=== PATIENT | female | born 1940 | race American Indian/Alaskan Native ===

== ENCOUNTER 2016-08-20 12:49 | Emergency (ER) | payer MEDICARE, OTHER ==
[2016-08-20 14:39] VITALS: BP 124/71
--- NOTE | 2016-08-20 15:06 | EDM.PDOC ---
ED HPI GENERAL MEDICAL PROBLEM - General Chief Complaint: ENT Problem Stated Complaint: EYES ARE BLODDY Time Seen by Provider: 08/20/16 15:06 Source of Information: Reports: Patient History Limitations: Reports: No Limitations - History of Present Illness INITIAL COMMENTS - FREE TEXT/NARRATIVE: pt arrived with hemmorage in both eyes. She thinks her blood thinner is to high. Sh had a recent increase in her coumadin. Onset: Today Duration: Hour(s): Associated Symptoms: Reports: Other (hemmorage in both conjuntivia. ) back pain Pain Score (Numeric/FACES): 8 - Related Data Allergies Allergy/AdvReac Type Severity Reaction Status Date / Time Sulfa (Sulfonamide Allergy Hives Verified 08/20/16 13:29 Antibiotics) Home Meds: Home Meds Cholecalciferol (Vitamin D3) [Vitamin D3] 2,000 unit PO BID 08/20/16 [History] Escitalopram [Lexapro] 10 mg PO DAILY 08/20/16 [History] Furosemide [Lasix] 20 mg PO DAILY 08/20/16 [History] Isosorbide Mononitrate [Imdur] 60 mg PO DAILY 08/20/16 [History] Levothyroxine 112 mcg PO ACBREAKFAST 08/20/16 [History] Lisinopril 20 mg PO DAILY 08/20/16 [History] Loratadine [Claritin] 10 mg PO DAILY 08/20/16 [History] Metoprolol Tartrate 50 mg PO BID 08/20/16 [History] Mycophenolate Mofetil [Cellcept] 250 mg PO BID 08/20/16 [History] Ranitidine [Zantac] 150 mg PO DAILY 08/20/16 [History] Sennosides [Senna] 2 tab PO BEDTIME 08/20/16 [History] Tacrolimus [Prograf] 2 mg PO DAILY 08/20/16 [History] Warfarin [Coumadin] 2.5 mg PO ASDIRECTED 08/20/16 [History] atorvaSTATin [Lipitor] 20 mg PO BEDTIME 08/20/16 [History] predniSONE [Prednisone] 5 mg PO DAILY 08/20/16 [History] Past Medical History Cardiovascular History: Reports: Afib, Heart Failure, Hypertension, Stents Genitourinary History: Reports: Other (See Below) Other Genitourinary History: kidney transplant 2011 Musculoskeletal History: Reports: Osteoporosis Neurological History: Reports: Concussion Psychiatric History: Reports: Anxiety, Depression Endocrine/Metabolic History: Reports: Hypothyroidism, Osteoporosis Immunologic History: Reports: Immunosuppression - Infectious Disease History Infectious Disease History: Reports: MRSA - Past Surgical History Cardiovascular Surgical History: Reports: Coronary Artery Bypass Female Surgical History: Reports: Other (See Below) Other Female Surgeries/Procedures: kidney transplant 2011 Musculoskeletal Surgical History: Reports: None Social & Family History - Tobacco Use Smoking Status *Q: Never Smoker - Recreational Drug Use Recreational Drug Use: No ED ROS ENT - Review of Systems Review Of Systems: See Below Constitutional: Reports: No Symptoms HEENT: Reports: Other ( conjuntivial hemmorage) Respiratory: Reports: No Symptoms Cardiovascular: Reports: No Symptoms Endocrine: Reports: No Symptoms GI/Abdominal: Reports: No Symptoms : Reports: No Symptoms ED EXAM, ENT - Physical Exam Exam: See Below Text/Narrative:: Pt has bilateral conjuntivial hemmorages. She has no pain and her vision is ok. Exam Limited By: No Limitations General Appearance: Alert, Anxious, Other (pt has bilateral conjuntivial hemmorages, worse on the left than the rt. ) Ears: Normal External Exam Nose: Normal Inspection Mouth/Throat: Normal Inspection Head: Atraumatic Neck: Normal Inspection Respiratory/Chest: No Respiratory Distress Course - Vital Signs Last Recorded V/S: Last Vital Signs Temp 36.3 C 08/20/16 13:25 Pulse 61 08/20/16 13:25 Resp 18 08/20/16 13:25 BP 124/71 08/20/16 14:38 Pulse Ox 88 L 08/20/16 13:25 - Orders/Labs/Meds Labs: Laboratory Tests 08/20/16 08/20/16 Range/Units 13:35 13:35 WBC 7.7 (4.5-11.0) K/uL RBC 4.74 (3.30-5.50) M/uL Hgb 13.3 (12.0-15.0) g/dL Hct 42.7 (36.0-48.0) % MCV 90 (80-98) fL MCH 28 (27-31) pg MCHC 31 L (32-36) % Plt Count 109 L (150-400) K/uL Neut % (Auto) 89 H (36-66) % Lymph % (Auto) 6 L (24-44) % [place] % (Auto) 5 (2-6) % Eos % (Auto) 0 L (2-4) % Baso % (Auto) 0 (0-1) % PT 76.9 H (9.5-12.0) sec INR 6.84 H* (0.80-1.20) Meds: Medications Discontinued Medications Generic Name Dose Route Start Last Admin Trade Name Freq PRN Reason Stop Dose Admin Phytonadione 4 mg 08/20/16 15:00 08/20/16 14:59 Aquamephyton IM 08/20/16 15:01 4 mg ONETIME ONE Administration - Re-Assessments/Exams Free Text/Narrative Re-Assessment/Exam: 08/20/16 15:34 pt was given vit k 4mg im. She will take no coumadin today and 2.5 mg tomorrow. Departure - Departure Time of Disposition: 15:12 Disposition: Home, Self-Care 01 Condition: fair Clinical Impression: Elevated INR, Congestive cardiac failure - Discharge Information Instructions: Prothrombin Time, International Normalized Ratio Test, Heart Failure, [id number] Referrals: PCP,None [Primary Care Provider] - Forms: ED Department Discharge Care Plan Goals: appt with Dr redmond in [place] recheck Inr and discuss other other meds she could use with the A fib. Use liquid tears in the eyes. no coumadin today, 2.5 of coumadin tomorrow then further instructions on sat at [facility].
== END 2016-08-20 15:31 | disposition home or self-care (01) ==
LOC: JP.ED 12:49
DX: I11.0 Hypertensive heart disease with heart failure (principal); I50.9 Heart failure, unspecified; R79.1 Abnormal coagulation profile; I48.91 Unspecified atrial fibrillation; F41.9 Anxiety disorder, unspecified; F32.9 Major depressive disorder, single episode, unspecified; E03.9 Hypothyroidism, unspecified; M81.0 Age-related osteoporosis without current pathological fracture; Z95.1 Presence of aortocoronary bypass graft; Z95.5 Presence of coronary angioplasty implant and graft; Z94.0 Kidney transplant status; Z79.01 Long term (current) use of anticoagulants; Z79.899 Other long term (current) drug therapy; Z88.2 Allergy status to sulfonamides
CPT/HCPCS: 36415; 85025; 85610; 96372; 99284; J3430; 99283

== ENCOUNTER 2016-09-04 15:43 | Emergency (ER) | payer MEDICARE, OTHER ==
[2016-09-04 16:20] VITALS: BP 152/88
[2016-09-04] MEDS ORDERED: Phytonadione ORAL 5mg/5ml Soln Simple Syrup U/D PO ONE (18:24)
--- NOTE | 2016-09-04 18:33 | EDM.PDOC ---
ED HPI GENERAL MEDICAL PROBLEM - General Chief Complaint: General Stated Complaint: [facility] Time Seen by Provider: 09/04/16 16:41 Source of Information: Reports: Patient, Old Records, RN Notes Reviewed History Limitations: Reports: No Limitations - History of Present Illness INITIAL COMMENTS - FREE TEXT/NARRATIVE: 75-year-old female sent over from clinic today for unmeasurable INR, recommended to follow the protocol for 8 CMC, she takes Coumadin for atrial fibrillation she is not actively bleeding she does have some conjunctival hemorrhage which has been on and off for the last year - Related Data Allergies Allergy/AdvReac Type Severity Reaction Status Date / Time Sulfa (Sulfonamide Allergy Hives Verified 08/20/16 13:29 Antibiotics) Home Meds: Home Meds Cholecalciferol (Vitamin D3) [Vitamin D3] 2,000 unit PO BID 08/20/16 [History] Escitalopram [Lexapro] 10 mg PO DAILY 08/20/16 [History] Furosemide [Lasix] 20 mg PO DAILY 08/20/16 [History] Isosorbide Mononitrate [Imdur] 60 mg PO DAILY 08/20/16 [History] Levothyroxine 112 mcg PO ACBREAKFAST 08/20/16 [History] Lisinopril 20 mg PO DAILY 08/20/16 [History] Loratadine [Claritin] 10 mg PO DAILY 08/20/16 [History] Metoprolol Tartrate 50 mg PO BID 08/20/16 [History] Mycophenolate Mofetil [Cellcept] 250 mg PO BID 08/20/16 [History] Ranitidine [Zantac] 150 mg PO DAILY 08/20/16 [History] Sennosides [Senna] 2 tab PO BEDTIME 08/20/16 [History] Tacrolimus [Prograf] 2 mg PO DAILY 08/20/16 [History] Warfarin [Coumadin] 2.5 mg PO ASDIRECTED 08/20/16 [History] atorvaSTATin [Lipitor] 20 mg PO BEDTIME 08/20/16 [History] predniSONE [Prednisone] 5 mg PO DAILY 08/20/16 [History] Past Medical History Cardiovascular History: Reports: Afib, Heart Failure, Hypertension, Stents Genitourinary History: Reports: Other (See Below) Other Genitourinary History: kidney transplant 2011 Musculoskeletal History: Reports: Osteoporosis Neurological History: Reports: Concussion Psychiatric History: Reports: Anxiety, Depression Endocrine/Metabolic History: Reports: Hypothyroidism, Osteoporosis Immunologic History: Reports: Immunosuppression - Infectious Disease History Infectious Disease History: Reports: MRSA - Past Surgical History Cardiovascular Surgical History: Reports: Coronary Artery Bypass Female Surgical History: Reports: Other (See Below) Other Female Surgeries/Procedures: kidney transplant 2011 Musculoskeletal Surgical History: Reports: None Social & Family History - Tobacco Use Smoking Status *Q: Never Smoker - Recreational Drug Use Recreational Drug Use: No ED ROS GENERAL - Review of Systems Review Of Systems: See Below Constitutional: Reports: No Symptoms HEENT: Reports: No Symptoms Respiratory: Reports: No Symptoms Cardiovascular: Reports: No Symptoms Endocrine: Reports: No Symptoms GI/Abdominal: Reports: No Symptoms : Reports: No Symptoms Musculoskeletal: Reports: No Symptoms Skin: Reports: No Symptoms Neurological: Reports: No Symptoms ED EXAM, GENERAL - Physical Exam Exam: See Below Exam Limited By: No Limitations General Appearance: Alert, WD/WN, No Apparent Distress Ear Exam: Left Ear: Other (Sub-conjunctival hemorrhage) Respiratory/Chest: No Respiratory Distress Course - Vital Signs Last Recorded V/S: Last Vital Signs Temp 97.0 F 09/04/16 16:15 Pulse 72 09/04/16 16:15 Resp 14 09/04/16 16:15 BP 152/88 H 09/04/16 16:15 Pulse Ox 96 09/04/16 16:15 - Orders/Labs/Meds Orders: Active Orders 24 hr Category Date Time Status PTT,PARTIAL THROMBOPLSTIN TIME [COAG] Stat Lab 09/04/16 18:27 Ordered Labs: Laboratory Tests 09/04/16 Range/Units 17:00 PT 100.0 H (9.5-12.0) sec Meds: Medications Discontinued Medications Generic Name Dose Route Start Last Admin Trade Name Freq PRN Reason Stop Dose Admin Phytonadione 10 mg 09/04/16 18:24 Aquamephyton PO 09/04/16 18:25 ONETIME ONE Departure - Departure Time of Disposition: 18:32 Disposition: Home, Self-Care 01 Condition: Good Clinical Impression: Elevated INR - Discharge Information Forms: ED Department Discharge Additional Instructions: Stop your Coumadin, please follow-up in the clinic tomorrow for recheck of your INR - My Orders Last 24 Hours: My Active Orders 09/04/16 18:27 PTT,PARTIAL THROMBOPLSTIN TIME [COAG] Stat - Assessment/Plan Last 24 Hours: My Active Orders 09/04/16 18:27 PTT,PARTIAL THROMBOPLSTIN TIME [COAG] Stat Plan: Assessment Acuity = acute Site and laterality = supratherapeutic anticoagulation for paroxysmal atrial fibrillation Etiology = unclear etiology Manifestations = none Location of injury = home Lab values = PT is greater than 100, INR is unmeasurable, PTT is pending Plan Called discussed the case with ham facer on-call [facility] recommended 10 mg of vitamin K by mouth and stopping of Coumadin followed by close clinical follow-up tomorrow for an INR recheck Patient was in agreement with the plan all questions were answered, they were instructed to return to the emergency department or call for worsening symptoms. This note was dictated using [employer] voice recognition software please call with any questions.
== END 2016-09-04 18:40 | disposition home or self-care (01) ==
LOC: JP.ED 15:43
DX: R79.1 Abnormal coagulation profile (principal); I11.0 Hypertensive heart disease with heart failure; I48.91 Unspecified atrial fibrillation; I50.9 Heart failure, unspecified; F41.9 Anxiety disorder, unspecified; F32.9 Major depressive disorder, single episode, unspecified; E03.9 Hypothyroidism, unspecified; Z95.4 Presence of other heart-valve replacement; Z79.899 Other long term (current) drug therapy; Z79.01 Long term (current) use of anticoagulants; Z88.2 Allergy status to sulfonamides; H11.30 Conjunctival hemorrhage, unspecified eye; Z95.1 Presence of aortocoronary bypass graft
CPT/HCPCS: 36415; 85610; 85730; 99284; A9270; 99283